=== PATIENT | female | born 1940 | race Caucasian/White ===

== ENCOUNTER 2017-12-06 16:26 | Emergency (ER) | payer OTHER ==
[~2017-12-06] VITALS: Ht 167.6 cm; Wt 90.7 kg
[~2017-12-06 16:26] MED LIST: COUMADIN2.5 MG PO; COZAAR50 MG PO; DITROPAN XL5 MG PO; GABAPENTIN600 M1 PO; GLIPIZIDE5 MG; METOPROLOL SUCC50 M2 PO; VITAMIN D5000 I3 PO
[2017-12-06 16:34] VITALS: Ht 167.6 cm; Wt 90.7 kg
[2017-12-06 17:43] VITALS: BP 125/48
== END 2017-12-06 17:44 | disposition home or self-care (01) ==
LOC: ED 16:26
DX: S70.02XA Contusion of left hip, initial encounter (principal); I10 Essential (primary) hypertension; E11.9 Type 2 diabetes mellitus without complications; I48.91 Unspecified atrial fibrillation; Z88.8 Allergy status to other drugs, medicaments and biological substances; W18.30XA Fall on same level, unspecified, initial encounter; Y93.89 Activity, other specified; Y99.8 Other external cause status; Y92.89 Other specified places as the place of occurrence of the external cause

== ENCOUNTER 2017-12-27 12:52 | Observation (INO) | payer OTHER ==
[~2017-12-27] VITALS: Ht 162.6 cm; Wt 100.0 kg
[2017-12-27 13:04] VITALS: Ht 162.6 cm; Wt 100.0 kg
[2017-12-27 13:43] LABS: BASOPHIL % 0.7 % (0-2); PLATELET COUNT 295 x10^3mcL (130-400)
[2017-12-27 13:45] LABS: RED CELL DISTRIBUTION WIDTH 15.6 % (11.5-14.5)
[2017-12-27 14:06] LABS: CALCIUM 9.4 mg/dL (8.5-10.1); CARBON DIOXIDE 27.9 mmol/L (21-32); CHLORIDE SERUM 103 mmol/L (98-107); CREATININE SERUM 0.9 mg/dL (0.6-1.0); GLUCOSE SERUM 121 mg/dL (74-106); POTASSIUM SERUM 4.3 mmol/L (3.5-5.1); SODIUM SERUM 139 mmol/L (136-145)
[2017-12-27 14:11] LABS: ALBUMIN 3.4 g/dL (3.4-5.0); ALKALINE PHOSPHATASE 67 U/L (46-116); ALT/SGPT 20 U/L (14-59); AST/SGOT 26 U/L (15-37); BILIRUBIN TOTAL 0.4 mg/dL (0.20-1.00)
[2017-12-27 15:47] LABS: IRON 82 ug/dL (50-170); TOTAL IRON BINDING CAPACITY 328 ug/dL (250-450)
[2017-12-27 16:07] LABS: T3 TOTAL 0.99 ng/mL
[2017-12-27 16:17] LABS: FREE T4 1.17 ng/dL (0.76-1.46); FREE THYROXINE INDEX 2.8 ug/dL (1.4-4.5); T4(THYROXINE) 8.6 ug/dL (4.7-13.3)
[2017-12-27 16:31] LABS: PHOSPHOROUS 3.3 mg/dL (2.5-4.9)
[2017-12-27 16:42] LABS: UA SPECIFIC GRAVITY 1.015 (1.005-1.035); microscopic required? YES; urine erythrocyte TRACE (NEGATIVE)
[2017-12-27 16:53] LABS: RED BLOOD CELLS 3.75 M/mm3 (4.10-5.10)
[2017-12-27 17:24] VITALS: BP 183/53
[2017-12-27 19:35] VITALS: BP 150/57
[2017-12-28 06:11] VITALS: BP 153/41
[2017-12-28 06:20] LABS: BASOPHIL % 0.5 % (0-2); PLATELET COUNT 286 x10^3mcL (130-400)
[2017-12-28 07:01] LABS: CALCIUM 8.5 mg/dL (8.5-10.1); CARBON DIOXIDE 26.2 mmol/L (21-32); CHLORIDE SERUM 106 mmol/L (98-107); CREATININE SERUM 0.7 mg/dL (0.6-1.0); GLUCOSE SERUM 92 mg/dL (74-106); MAGNESIUM 1.9 mg/dL (1.8-2.4); PHOSPHOROUS 2.9 mg/dL (2.5-4.9); POTASSIUM SERUM 3.7 mmol/L (3.5-5.1); SODIUM SERUM 142 mmol/L (136-145)
[2017-12-28 07:06] LABS: RED CELL DISTRIBUTION WIDTH 15.7 % (11.5-14.5)
[2017-12-28 09:10] VITALS: BP 155/54
[2017-12-28] MEDS ORDERED: BACTRIM DS1 TAB PO (11:28)
[2017-12-28] MEDS ORDERED: CULTURELLE DIGE1 CAP PO (11:28)
[2017-12-28 12:51] VITALS: BP 155/54
[2017-12-28 13:18] VITALS: BP 163/41
[2017-12-28 15:41] LABS: CALCIUM 8.8 mg/dL (8.5-10.1); CARBON DIOXIDE 29.3 mmol/L (21-32); CHLORIDE SERUM 107 mmol/L (98-107); CREATININE SERUM 0.8 mg/dL (0.6-1.0); GLUCOSE SERUM 133 mg/dL (74-106); POTASSIUM SERUM 3.9 mmol/L (3.5-5.1); SODIUM SERUM 144 mmol/L (136-145)
== END 2017-12-28 15:45 | disposition home health service (06) | DRG 124 ==
LOC: ED 12:52 → DU 14:46 → EDBD 12-28 15:45 → DU 12-28 15:45
PROVIDERS: Emergency Medicine; Family Medicine Sports Medicine
DX: S00.12XA Contusion of left eyelid and periocular area, initial encounter (principal); N17.0 Acute kidney failure with tubular necrosis; I48.91 Unspecified atrial fibrillation; I16.0 Hypertensive urgency; E11.40 Type 2 diabetes mellitus with diabetic neuropathy, unspecified; D64.9 Anemia, unspecified; E78.5 Hyperlipidemia, unspecified; E66.9 Obesity, unspecified; Z68.34 Body mass index [BMI] 34.0-34.9, adult; Z79.01 Long term (current) use of anticoagulants; Z96.652 Presence of left artificial knee joint; Z79.84 Long term (current) use of oral hypoglycemic drugs; Z87.891 Personal history of nicotine dependence; Z66 Do not resuscitate; W05.2XXA Fall from non-moving motorized mobility scooter, initial encounter; Y92.099 Unspecified place in other non-institutional residence as the place of occurrence of the external cause
CPT/HCPCS: 82962; 83880; 84439; 97110-GP; G0378; J0360; J0696; J7030; Q0092

== ENCOUNTER 2017-12-29 15:10 | Inpatient (IN) | payer OTHER ==
[~2017-12-29] VITALS: Ht 162.6 cm; Wt 73.0 kg
[~2017-12-29 15:10] MED LIST changes: +BACTRIM DS1 TAB PO; +CULTURELLE DIGE1 CAP PO
[2017-12-29 15:22] VITALS: Ht 162.6 cm; Wt 73.0 kg
[2017-12-29 18:33] LABS: BASOPHIL % 0.5 % (0-2); PLATELET COUNT 321 x10^3mcL (130-400)
[2017-12-29 18:37] LABS: RED CELL DISTRIBUTION WIDTH 15.6 % (11.5-14.5)
[2017-12-29 18:47] LABS: CALCIUM 9.1 mg/dL (8.5-10.1); CARBON DIOXIDE 27.8 mmol/L (21-32); CHLORIDE SERUM 105 mmol/L (98-107); CREATININE SERUM 0.8 mg/dL (0.6-1.0); GLUCOSE SERUM 130 mg/dL (74-106); POTASSIUM SERUM 3.8 mmol/L (3.5-5.1); SODIUM SERUM 142 mmol/L (136-145)
[2017-12-29 18:51] LABS: ALBUMIN 3.2 g/dL (3.4-5.0); ALKALINE PHOSPHATASE 76 U/L (46-116); ALT/SGPT 20 U/L (14-59); AST/SGOT 28 U/L (15-37); CHOLESTEROL 247 mg/dL (<200); CHOLESTEROL/HDL RATIO 6.2; HDL CHOLESTEROL 40 mg/dL (40-60); LIPASE 91 IU/L (73-393); TOTAL PROTEIN, SERUM 6.8 g/dL (6.4-8.2); TRIGLYCERIDES 180 mg/dL (<150)
[2017-12-29 19:25] LABS: FREE T4 1.08 ng/dL (0.76-1.46); FREE THYROXINE INDEX 3.2 ug/dL (1.4-4.5); MAGNESIUM 2.7 mg/dL (1.8-2.4); T4(THYROXINE) 9.3 ug/dL (4.7-13.3)
[2017-12-29 20:03] VITALS: BP 137/44
[2017-12-29 20:56] VITALS: BP 147/53
[2017-12-30 06:13] VITALS: BP 164/44
[2017-12-30 08:27] VITALS: BP 163/41
[2017-12-30 09:22] LABS: T3 TOTAL 0.92 ng/mL
[2017-12-30 13:43] VITALS: BP 157/52
[2017-12-30 17:14] VITALS: BP 150/40
[2017-12-30 21:25] VITALS: BP 136/44
[2017-12-31] VITALS (11 sets, daily range): BP systolic 117–186; BP diastolic 37–53
[2017-12-31 06:27] LABS: PLATELET COUNT 246 x10^3mcL (130-400)
[2017-12-31 06:40] LABS: BASOPHIL % 2.2 % (0-2); RED CELL DISTRIBUTION WIDTH 15.2 % (11.5-14.5)
[2017-12-31 07:19] LABS: CALCIUM 8.8 mg/dL (8.5-10.1); CARBON DIOXIDE 26.1 mmol/L (21-32); CHLORIDE SERUM 108 mmol/L (98-107); CREATININE SERUM 0.8 mg/dL (0.6-1.0); GLUCOSE SERUM 110 mg/dL (74-106); PHOSPHOROUS 3.6 mg/dL (2.5-4.9); POTASSIUM SERUM 4.1 mmol/L (3.5-5.1); SODIUM SERUM 142 mmol/L (136-145)
[2017-12-31] MEDS ORDERED: HEP100I IV (20:11)
[2017-12-31] MEDS ORDERED: HEP5I IV (20:12)
[2017-12-31] MEDS ORDERED: ZETIA10 M1 PO (20:12)
[2017-12-31] MEDS ORDERED: BET80 PO (20:13)
== END 2017-12-31 22:12 | disposition short-term general hospital (02) | DRG 280 ==
LOC: ED 15:10 → DU 16:19 → EDBD 16:19 → DU 16:19
PROVIDERS: Family Medicine; Family Medicine Sports Medicine; Internal Medicine Cardiovascular Disease; Specialist
PROC: B2111ZZ Fluoroscopy of Multiple Coronary Arteries using Low Osmolar Contrast (ICD-10-PCS; 2017-12-31)
PROC: B2151ZZ Fluoroscopy of Left Heart using Low Osmolar Contrast (ICD-10-PCS; 2017-12-31)
PROC: 4A023N8 Measurement of Cardiac Sampling and Pressure, Bilateral, Percutaneous Approach (ICD-10-PCS; principal; 2017-12-31 08:45)
DX: I21.A1 Myocardial infarction type 2 (principal); N17.0 Acute kidney failure with tubular necrosis; E44.0 Moderate protein-calorie malnutrition; I35.0 Nonrheumatic aortic (valve) stenosis; I10 Essential (primary) hypertension; I16.0 Hypertensive urgency; I27.20 Pulmonary hypertension, unspecified; E11.65 Type 2 diabetes mellitus with hyperglycemia; K21.9 Gastro-esophageal reflux disease without esophagitis; E83.41 Hypermagnesemia; Z96.652 Presence of left artificial knee joint; I48.0 Paroxysmal atrial fibrillation; E78.5 Hyperlipidemia, unspecified; E11.40 Type 2 diabetes mellitus with diabetic neuropathy, unspecified; R32 Unspecified urinary incontinence; I48.2 Chronic atrial fibrillation; N32.81 Overactive bladder; I25.10 Atherosclerotic heart disease of native coronary artery without angina pectoris; Z88.8 Allergy status to other drugs, medicaments and biological substances; Z90.710 Acquired absence of both cervix and uterus; Z98.49 Cataract extraction status, unspecified eye; Z83.3 Family history of diabetes mellitus; Z80.9 Family history of malignant neoplasm, unspecified; Z98.891 History of uterine scar from previous surgery
CPT/HCPCS: 93460; 93566; G0278; CLHCL; 82962; 83880; 84439; C1751; C1769; C1894; J0360; J0696; J1644; J2001; J2250; J3010; J3475; J3490; J7030; J7040; Q0092; Q0163; Q9967

== ENCOUNTER 2019-02-09 18:27 | Emergency (ER) | payer OTHER | END 2019-02-09 22:06 | disposition home or self-care (01) | LOC: ED 18:27 ==

== ENCOUNTER 2019-03-15 03:05 | Emergency (ER) | payer OTHER ==
[~2019-03-15] VITALS: Ht 162.6 cm; Wt 90.7 kg
[~2019-03-15 03:05] MED LIST changes: +BET80 PO; +HEP100I IV; +HEP5I IV; +ZETIA10 M1 PO
[2019-03-15 09:22] VITALS: BP 130/86
== END 2019-03-15 09:22 | disposition home or self-care (01) ==
LOC: ED 03:05
DX: S31.821A Laceration without foreign body of left buttock, initial encounter (principal); S00.03XA Contusion of scalp, initial encounter; I48.91 Unspecified atrial fibrillation; I10 Essential (primary) hypertension; E11.9 Type 2 diabetes mellitus without complications; Z88.8 Allergy status to other drugs, medicaments and biological substances; Z90.710 Acquired absence of both cervix and uterus; W22.8XXA Striking against or struck by other objects, initial encounter; Y93.89 Activity, other specified; Y92.89 Other specified places as the place of occurrence of the external cause; Y99.8 Other external cause status

== ENCOUNTER 2019-07-03 00:25 | Emergency (ER) | payer OTHER ==
[~2019-07-03] VITALS: Ht 167.6 cm; Wt 81.6 kg
[2019-07-03 00:42] VITALS: Ht 167.6 cm; Wt 81.6 kg
[2019-07-03 02:03] LABS: CALCIUM 9.2 mg/dL (8.5-10.1); CARBON DIOXIDE 30.9 mmol/L (21-32); CHLORIDE SERUM 105 mmol/L (98-107); GLUCOSE SERUM 111 mg/dL (74-106); POTASSIUM SERUM 4.1 mmol/L (3.5-5.1); SODIUM SERUM 144 mmol/L (136-145)
[2019-07-03 02:07] LABS: ALBUMIN 3.6 g/dL (3.4-5.0); ALKALINE PHOSPHATASE 106 U/L (46-116); ALT/SGPT 13 U/L (14-59); AST/SGOT 17 U/L (15-37); BILIRUBIN TOTAL 0.31 mg/dL (0.20-1.00); LIPASE 83 IU/L (73-393); TOTAL PROTEIN, SERUM 7.3 g/dL (6.4-8.2)
[2019-07-03 02:28] LABS: BASOPHIL % 0.4 % (0-2); PLATELET COUNT 235 x10^3mcL (130-400); RED CELL DISTRIBUTION WIDTH 13.9 % (11.5-14.5)
[2019-07-03 07:40] VITALS: BP 101/69
== END 2019-07-03 07:40 | disposition home or self-care (01) ==
LOC: ED 00:25 → EDBD 00:25 → ED 07:40
PROVIDERS: Emergency Medicine
DX: R10.10 Upper abdominal pain, unspecified (principal); I25.2 Old myocardial infarction; I10 Essential (primary) hypertension; E11.9 Type 2 diabetes mellitus without complications; Z86.73 Personal history of transient ischemic attack (TIA), and cerebral infarction without residual deficits; Z88.8 Allergy status to other drugs, medicaments and biological substances; Z90.710 Acquired absence of both cervix and uterus
CPT/HCPCS: 36415; Q0092